=== PATIENT | female | born 1950 | race Caucasian/White ===

== ENCOUNTER 2021-01-30 15:10 | Outpatient (CLI) | payer MEDICARE, OTHER, SELFPAY ==
[2021-01-30] MEDS: 0.9% Saline Lock 10 ML Syringe IV (15:41)
[2021-01-30 15:45] VITALS: BP 114/77; PULSE 98; RESP 16; TEMP 36.6; O2SAT 98; BMI 28.5
[2021-01-30 16:13] VITALS: BP 107/66; PULSE 59; RESP 16; TEMP 36.7; O2SAT 100
[2021-01-30 17:11] VITALS: BP 108/74; PULSE 61; RESP 16; TEMP 36.7; O2SAT 100
== END 2021-01-30 17:13 | disposition home or self-care (01) ==
LOC: MS3OUT 15:13 → MS3 15:14
PROVIDERS: Referring Provider Nurse Practitioner Adult Health; Visit Provider Nurse Practitioner Adult Health
DX: Z23 Encounter for immunization (principal); U07.1 COVID-19
CPT/HCPCS: J7050; M0245; Q0245; A4216